=== PATIENT | male | born 1995 | race Caucasian/White ===

== ENCOUNTER 2018-12-13 10:05 | Emergency (ER) | payer OTHER ==
[~2018-12-13] VITALS: Ht 180.3 cm; Wt 84.0 kg
--- NOTE | 2018-12-13 10:22 | NUR ---
TASK RN: PT AMBULATORY UPRIGHT STEADY GAIT TO ROOM FROM [facility]. URINE SAMPLE COLLECTED AND SENT TO LAB. CALL LIGHT W/I REACH
[2018-12-13] MEDS ORDERED: ONDANSETRON 2MG/ML, 2ML ONE (10:30)
[2018-12-13] MEDS ORDERED: SODIUM CHLORIDE FLUSH 10ML SYR IVF ONE (10:30)
[2018-12-13] MEDS ORDERED: HYDROmorphone 1 MG/ML, 1ML VIAL ONE (10:30)
[2018-12-13] MEDS ORDERED: ONDANSETRON 2MG/ML, 2ML IVPush ONE (10:30)
--- NOTE | 2018-12-13 10:33 | NUR ---
Pt transported on gurney to CT at this time. Pt not in room.
[2018-12-13 10:56] LABS: MICROSCOPIC INDICATED
[2018-12-13] MEDS ORDERED: KETOROLAC 30 MG/1 ML IVPush ONE (11:00)
[2018-12-13] MEDS ORDERED: KETOROLAC 30 MG/1 ML ONE (11:07)
[2018-12-13 11:14] LABS: CULTURE INDICATED? NO
--- NOTE | 2018-12-13 11:19 | NUR ---
PIV established by ED RN and pain medications provided per [facility]. Spo2% monitor on. NADN. All safety measures in place. Call light within reach.
[2018-12-13] MEDS: HYDROmorphone 2 MG/ML, 1ML IVPush PRN ×2 (11:21→11:59)
[2018-12-13 12:40] VITALS: BP 124/75
--- NOTE | 2018-12-13 12:44 | NUR ---
Patient given discharge instructions and they have confirmed that they understand the instructions. Patient ambulatory with steady gait. Pt left with discharge paperwork, prescription, school note, and all personal belongings.
== END 2018-12-13 12:42 | disposition home or self-care (01) ==
LOC: ED 11:47
DX: N20.1 Calculus of ureter (principal); R31.9 Hematuria, unspecified
CPT/HCPCS: 74176; 81001; 96374; 96375; 96376; 99284; J1170; J1885; J2405